=== PATIENT | male | born 1965 | race Two or more races ===

== ENCOUNTER 2020-12-16 19:49 | Emergency (ER) | payer OTHER ==
[~2020-12-16] VITALS: Ht 175.3 cm; Wt 81.6 kg
[2020-12-16] MEDS ORDERED: XARELTO10 M1 PO (20:24)
[2020-12-16] MEDS ORDERED: LOSARTAN POTASS50 MG PO (21:50)
== END 2020-12-16 21:59 | disposition home or self-care (01) ==
LOC: ER 19:49
DX: I10 Essential (primary) hypertension (principal)